=== PATIENT | male | born 1985 | race Caucasian/White ===

== ENCOUNTER 2022-01-24 09:15 | Outpatient (RCR) | payer OTHER, SELFPAY ==
--- NOTE | 2022-01-24 09:15 | BH.COMM ---
Communication Note - Communication with Client Communication Note: Met with patient to complete initial paperwork. No significant changes since pre-admission screening. Completed [place] Suicide Screening. Moderate risk. No active SI. Consulted with Dr. Lance with plan to admit to [facility] level of care with dx of F33.2.
--- NOTE | 2022-01-24 09:15 | BH.COMM_ITS ---
Communication Note - Communication with Client Communication Note: Met with patient to complete initial paperwork. No sig nificant changes since pre-admission screening. Completed [place] Suicide Screening. Moderate risk. No active SI. Consulted with Dr. Lance with plan to admit to [facility] level of care with dx of F33.2.
--- NOTE | 2022-01-24 10:10 | BH.SGPN.GN ---
Behaviors/Verbalizations/Mental Status: [] Client alert and oriented, neatly dressed and groomed. Eye contact good. Motor activity appropriate. Speech within normal limits. Affect congruent, mood euthymic. Thoughts linear, logical, no signs of hallucinations or delusions. Client Response/Progress/Benefit: [] Client connected with topic of anxiety and participated throughout, providing input and taking notes. Attentive during psychoeducation on different anxiety disorders and participated throughout interactive discussion defining anxiety and identifying cognitive and physiological symptoms of anxiety. Common cognitive symptoms identified by group included: ?what if thoughts?, all or nothing thinking, and predicting the future type thoughts. Physiological symptoms reported by patient included: hands sweating, chest being squeezed, and blurred vision. Benefited from increased awareness and insight on anxiety and its impact. Will continue IOP tx to increase healthy coping, decreased anxiety, and prevent decompensation.
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
[2022-01-26 10:54] VITALS: BP 136/88; PULSE 53
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
--- NOTE | 2022-01-26 11:13 | BH.MTP_ITS ---
Master Treatment Plan - Patient Information Program Physician:: Dr. Ester Shields Primary Therapist:: Jaqueline HI - Psychiatric Diagnoses Psychiatric Diagnoses:: Major depressive disorder, recurrent, severe without psychosis F33.2; Generalized anxiety disorder; Rule out PTSD Diagnosis Code(s):: F33.2 - Estimated LOS Estimated LOS (in weeks):: 6 Problem/Goal #1 - Problem/Goal #1 Stated Goal:: Pt will decrease depressive symptoms, worthlessness, low motivation, negative self-talk, and isolation. Description of Barriers: Pt has a significant trauma history, but pt denies that this impacts his mental health currently. Pt minimizes his symptoms and stressors by using humor and deflections. Pt is working fulltime while coming to [facility]. Functional Impact: Pt is a 36-year-old male with a history of MDD and ARVIND. Pt was referred to [facility] tx following a recent hospitalization and worsening symptoms over the past three months. 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 At intake, pt endorsed hopelessness, low motivation, poor sleep, avoidance, and lack of appetite. Pt reported severe anxiety with 2-3 panic attacks per day. Pt also had a self-interrupted suicide attempt in October. Pt's symptoms are impacting his familial, social, and occupational functioning. Goal Relevant Strengths/Supports: Pt has support from his and is connected with outpatient services. - Objectives Objective #1 Stated Objective: Pt will learn and utilize 2-3 healthy coping strategies to better manage depressive symptoms and reduce isolation as shown by a decrease of DMS-5 symptoms for depression. Interventions: Through group and individual sessions, therapist will help pt identify triggers and warning signs of depression and guilt including emotional, physical, and behavioral changes. Therapist will teach pt various coping skills to manage symptoms and give pt tangible resources to use to regulate emotions. Therapist will use cognitive restructuring techniques and help pt gain awareness of negative thoughts that reinforce guilt and depression. Therapist will provide psychoeducation on maintenance cycles and help pt learn ways to break unhealthy maintenance cycles. Therapist will help pt incorporate behavioral activation and assist pt in setting SMART goals. Discharge Criteria: Pt will have met this goal when can report learning and using at least 2 coping skills to manage depressive symptoms and reduce isolation. Additionally, pt will have met this goal when pt's DSM-5 scores for depression decrease. Target Date: 03/07/22 Review Date: 02/14/22 Status: open Objective #2 Stated Objective: Pt will identify at least 2-3 negative thinking patterns that reinforce worthlessness and depression and replace thoughts with positive, realistic messages. Interventions: Therapist will help pt identify distorted, negative thought patterns and replace with more realistic, affirmative messages. Through group and individual therapy pt will learn about the most common distortions. Therapist will use CBT to help pt increase insight to the connection between thoughts, emotions, and behaviors. Therapist will encourage pt to practice thought challenging and self-compassion. Discharge Criteria: Pt will have achieved this goal when can verbalize at least 2 negative thoughts and effectively replace those thoughts with affirmative messages. Target Date: 03/07/22 Review Date: 02/14/22 Status: open Problem/Goal #2 - Problem/Goal #2 Stated Goal:: Pt will reduce anxiety, avoidance, and rumination while increasing ability to function on daily basis Description of Barriers: Pt has a significant trauma history, but pt denies that this impacts his mental health currently. Pt minimizes his symptoms and stressors by using humor and deflections. Pt is working fulltime while coming to [facility]. Functional Impact: Pt is a 36-year-old male with a history of MDD and ARVIND. Pt was referred to [facility] tx following a recent hospitalization and worsening symptoms over the past three months. 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 At intake, pt endorsed hopelessness, low motivation, poor sleep, avoidance, and lack of appetite. Pt reported severe anxiety with 2-3 panic attacks per day. Pt also had a self-interrupted suicide attempt in October. Pt's symptoms are impacting his familial, social, and occupational functioning. Goal Relevant Strengths/Supports: Pt has support from his and is connected with outpatient services. - Objectives Objective #1 Stated Objective: Pt will identify 2-3 anxiety/panic triggers and 2 coping skills to use when feeling anxious to manage anxiety as shown by decreasing DSM- 5 scores for anxiety. Interventions: Pt will provide education on anxiety, avoidance behaviors, and maintenance cycles. Therapist will help pt explore personal symptoms and warning signs of anxiety. Therapist will teach pt coping skills to improve emotional regulation, mindfulness, and distress tolerance to help pt cope with anxiety in the moment and reduce avoidance. Discharge Criteria: Pt will have accomplished this goal when can identify at least 2 triggers and report using 2 coping skills to manage anxiety. Herb tionally, pt will have accomplished this goal when DSM-5 scores show a reduction in symptoms. Target Date: 03/07/22 Review Date: 02/14/22 Status: open Objective #2 Stated Objective: pt will identify 2-3 cognitive distortions that lead to rumination and learn 2-3 ways to manage these thoughts to better manage anxiety Interventions: Therapist will provide education on the most common cognitive distortions and teach pt the connection between thoughts, emotions, and fe elings. Therapist will assist pt in identifying, challenging, and replacing dysfunctional thoughts with positive, more realistic thoughts. Therapist will use CBT and DBT techniques to help pt gain awareness of thinking errors and learn how to more effectively handle negative thoughts. Therapist will also use self-compassion to help pt set more realistic expectations for himself Discharge Criteria: Pt will have accomplished this goal when can identify at least 2 cognitive distortions and at least 2 coping skills to manage negative thoughts. Target Date: 03/07/22 Review Date: 02/14/22 Status: open
--- NOTE | 2022-01-26 11:13 | BH.MDN_ITS ---
Multi-Disciplinary Note - Note 45-min Individual Time Started:: 10:18 Date: 01/26/22 Purpose of session/treatment goals addressed:: To gather information on pt's current stressors, symptoms, triggers, and tx goals. Another goal was to build rapport and provide emotional support. Eye Contact:: Poor - looking at phone and avoiding eye contact Motor Activity:: Appropriate Appearance:: Neat Speech:: Rambling Mood:: Anxious Affect:: Constricted Thoughts:: Circular, Other - distracted- on his phone Staff Interventions:: psychoeducation on: - intrusive thoughts, rapport building, treatment planning Client Response:: Pt responded somewhat well to session, open to meeting with therapist, but presented as disengaged. Pt scrolled on his phone for most of the session, but would say I'm not ignoring you, I'm listening. However, pt did not always answer questions and changed the subject several times. Pt unable to identify what triggered his worsening symptoms, but shared he started getting severe anxiety after returning home from vacation. Pt wants to work on reducing his anxiety and learn how to manage his anxious, intrusive thoughts. Pt did not give much detail of his past, but did shared his brother in 2004. 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 Pt does not believe he has PTSD, but from pt describes, it will need to be ruled out. Pt shared he often feels like things are not real and pointed out the window in session saying I don't like to look at the leaves because they don't feel real. Pt has to leave early today for work, but will be back Monday. Risks/Concerns:: Pt denied any suicidal ideations, plan, or intent to this therapist. Pt denied any thoughts of to this therapist. Denied HI. Progress Toward Goals/Plan:: First week of IOP tx and pt does not present as engaged. During session pt was scrolling through pictures and was not giving this therapist much information. Pt stated he is unsure about taking medications and he has not found therapy to be very helpful in the past. Pt admits that his anxiety is severe and hindering his daily functioning. Pt used humor many times throughout session to minimize his stressors and symptoms. Pt will continue IOP tx to prevent decompensation, gain healthy coping skills, and reduce avoidance. Time Stopped:: 10:56
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
--- NOTE | 2022-01-26 13:15 | BH.DR.ITP ---
Initial Treatment Plan Patient Information Visit Information: ADMISSION DATE: EXPECTED LOS: 4-6 weeks Problems/Symptoms Problem #1:: Depression Symptom:: Sadness, hopelessness, worthlessness, passive thoughts of , anhedonia, lack of motivation biological disruption of appetite in recent months Problem #2:: Anxiety Symptom:: Worry, rumination, depersonalization, derealization
--- NOTE | 2022-01-28 09:05 | BH.SGPN.GN ---
Behaviors/Verbalizations/Mental Status: []Eye contact good, casually dressed, motor activity appropriate, speech normal rate and tone, mood anxious and depressed, congruent affect, thoughts linear and intact, no evidence of delusions or hallucinations. At times making inappropriate jokes/comments. Reviewed pt's symptom tracker, suicidal ideation within pt baseline, denies any current plan, or intent as of this date 01/28/22. Client Response/Progress/Benefit: []Pt responded well to session, attentive and providing supportive feedback at times though also struggling with making inappropriate comments/jokes at other times throughout. Pt reports feeling ?excited and nervous this morning. Identified mental health ?wins? as completing another week at work without his mental health impacting his ability to do so. Discussed that this is the first time in three months he has been able to successfully do so. Pt shared additional win is continuing to make his mental health a priority and working on being more vulnerable and open to discussing his mental health. Current stressor is continuing to maintain the progress he has made and prioritize his mental health. Receptive of and appearing to benefit from supportive feedback and suggestions from the group. Pt to continue IOP tx to improve healthy coping skills, reduce use of defense mechanisms impeding willingness to open up, and further improve mood stability. Narrative Note: []
--- NOTE | 2022-01-28 14:29 | BH.MDN_ITS ---
Multi-Disciplinary Note - Note 30-min Individual Time Started:: 10:30 Date: 01/28/22 Purpose of session/treatment goals addressed:: Met with pt to review progress and current symptoms Eye Contact:: Good Motor Activity:: Appropriate Appearance:: Casual Speech:: Appropriate Mood:: Anxious Affect:: Congruent Thoughts:: Linear, Logical, No evidence of hallucinations/delusions noted Staff Interventions:: psychoeducation on: - appropriate group behaviors., rapport building Client Response:: Pt reports that he is doing much better today than previous days. Met with pt to clarify some recent changes since his pre-admission scre ening. Pt had not been to work since 10/2021 however left IOP early on Monday b/c he had to go to work. It seems that his FMLA ran out and he was more or less forced to return to work. Therapist believed that this would be a significant stressors however pt reports that so far I've been doing well. He has worked 4 days this week. He notes improved mood this week. Could be a mix of engaging in IOP and returning to work. Also used the session to review group rules and appropriate behaviors. Risks/Concerns:: no risks or concerns noted. Progress Toward Goals/Plan:: Progress noted per pt report. Returned to work. Improved relationship at home since returning as this was a major conflict with his . He has struggled at times in group with appropriate behaviors and boundaries however was receptive to education on group rules today. Will continue in IOP to maintain safety, increase healthy coping, and stabilize mood. Time Stopped:: 10:50
--- NOTE | 2022-01-31 10:20 | BH.SGPN.GN ---
Behaviors/Verbalizations/Mental Status: []Pt alert and oriented, casually dressed and groomed. Eye contact good. Motor activity appropriate. Speech within normal limits. Affect congruent, mood anxious. Thoughts linear, logical, no signs of hallucinations or delusions. Client Response/Progress/Benefit: []Pt responded well to session, contributing to discussion and engaged during the activity. Group identified the benefits of change which included: less stress, healthier wellbeing, and a better future. Worked with the group to identify barriers to change and pt identified personal barriers as fear of taking medications and fear of the unknown. Pt participated along with group in activity where they identified and discussed the emotions related to change. Pt participated in discussion on the change process and personal experiences with implementing change in past. Benefited from increased awareness and understanding of emotions, benefits, and barriers related to change. Will continue IOP tx to improve emotional regulation skills, reduce negative thinking, and gain healthy coping skills. Narrative Note: []
--- NOTE | 2022-02-01 09:00 | BH.SGPN.GN ---
Behaviors/Verbalizations/Mental Status: [] Pt eye contact good, casually dressed, motor activity appropriate, speech normal rate and tone, mood anxious, congruent affect, thoughts linear and intact, no evidence of delusions or hallucinations. Client Response/Progress/Benefit: [] Client respond well to session as evidenced by listening attentively to others and sharing thoughts and feelings. Client stated mental positive was having no anxiety and being able to enjoy himself for the entire Monday. Client reported on Monday he spent time with his son hanging up all their decorations for Halloween which he stated was in trouble. Client reported stressor as experiencing a panic attack Monday evening after putting up the following decorations. Client corrected with his in regards to her stating being active could have brought on the panic attack because it would have increased his heart rate since he has not been very active in the last couple months. Client stated this morning he had another panic attack because he was experiencing fearful thoughts that he would have another panic attack. Seemed to benefit from support from peers. Client to continue IOP to increase healthy coping, challenge distorted thoughts and prevent decompensation. Narrative Note: []
--- NOTE | 2022-02-02 09:05 | BH.SGPN.GN ---
Behaviors/Verbalizations/Mental Status: [] Eye contact is good. Motor activity is appropriate. Appearance is casual. Speech is Appropriate. Mood is anxious. Affect is congruent. Thoughts are linear and logical. No evidence of psychosis. Reviewed daily check in sheet and no reports of suicidal ideations or intent. Client Response/Progress/Benefit: [] Pt was an active participant in group discussions. Attentive. Daily symptom tracker notes / for anxiety. Provided appropriate feedback. Emotion for today is ?eager?. Mental health win was ?pretty good week? as he continues to go to work daily and was open/honest with his employer regarding his mental health concerns. His depression and anxiety continue to impact his functioning as he reports that he is ?pushing through? distress. Has numerous thoughts and stigma associated with mental health ?why am I like this? ? will it ever get better?? ?why can?t I be like everyone else?. These thoughts lead to hopelessness. Group provided feedback and challenged his thoughts pointing to his progress since a month ago when he was hospitalized. Benefited from group support, encouragement, and feedback. Will continue in IOP to maintain safety, prevent decompensation/re-admission, decreased panic, and improve functioning. Narrative Note: []
--- NOTE | 2022-02-02 15:58 | BH.MDN_ITS ---
Multi-Disciplinary Note - Note 30-min Individual Time Started:: 11:20 Date: 02/02/22 Purpose of session/treatment goals addressed:: Reviewed current progress and symptoms. Addressed treatment goal #2 Eye Contact:: Good Motor Activity:: Appropriate Appearance:: Casual Speech:: Appropriate Mood:: Anxious Affect:: Congruent Thoughts:: Linear, Logical, No evidence of hallucinations/delusions noted Staff Interventions:: psychoeducation on: - intrusive thoughts, rapport building, goal setting Client Response:: Pt was open to session. This therapist with take over as pt's primary therapist in [facility] due to scheduling conflicts. Pt reports I just want to be normal in regarding to his depression, anxiety, dissociation, and depersonalization. Feels detached from himself and hype focuses on body my hands don't feel real. States that the room shrinks when anxious and stressed. Hopeless stating I feels like this won't get better. Pt reports significant intrusive thoughts that make me feels crazy. I'm embarrassed to say them out loud. He returned to work however often feels as if he is just pushing through the distress. Has existential thughts about himself and life which are exacerbating anxiety and depression such as is this all that my life is going to be. These thoughts coupled with anxiety, panic, health anxiety, and hopelessness resulted in decreased functioning since October. He only just returned to work, began driving by himself, and felt comfortable leaving the house. Risks/Concerns:: no risks or concerns noted. Progress Toward Goals/Plan:: For the first few days in IOP pt did not appear to be engaged, used humor as a defense mechanism, and was hesitant to be vulnerable and discuss struggles, however was noted to be more appropriate and engaged this week. Used the session to normalize his symptoms and provided psychoeducation on intrusive thoughts, depersonalization, and dissociation and how this impacts anxiety. Plan in to continue in [facility] to prevent decompensation, increase healthy coping, and improve functioning. Pt was recommended to start a new medication by program psychiatrist however has not started. He is hesitant due to I'm been getting better and I don't want to mess things up. Pt had significant side effects and decompensation with previous medication changes. Time Stopped:: 11:45
--- NOTE | 2022-02-04 09:05 | BH.SGPN.GN ---
Behaviors/Verbalizations/Mental Status: []Eye contact good, casually dressed, motor activity appropriate, speech normal rate and tone, mood euthymic, congruent affect, thoughts linear and intact, no evidence of delusions or hallucinations. Reviewed pt's symptom tracker pt denies any SI plan, or intent as of this date 02/04/22. Client Response/Progress/Benefit: [] Pt responded well to session, attentive and engaged. Pt reports feeling hopeful this morning as pt was productive yesterday. Pt shared he cleaned and fixed his car after work. Pt is also hopeful about IOP tx but pt struggles to be vulnerable per his report. Pt's lack of sleep and the stress of having a 7 week old baby continue to impact pt's mental health. Pt also struggles with intrusive thoughts and ruminations. Pt appeared to benefit from group support and encouragement. Pt will continue IOP tx to prevent decompensation, improve daily functioning, and reduce intrusive thoughts. Narrative Note: []
--- NOTE | 2022-02-07 09:05 | BH.SGPN.GN ---
Behaviors/Verbalizations/Mental Status: [] Eye contact is poor. Motor activity is appropriate. Appearance is casual. Speech is Appropriate. Mood is anxious/irritable. Affect is congruent. Thoughts are linear and logical. No evidence of psychosis. Reviewed daily check in sheet and no reports of suicidal ideations or intent Client Response/Progress/Benefit: [] Pt participated when prompted. Distracted. Restless. Daily symptom tracker notes 2/5 for depression and anxiety. Was very short with his check-in which is not baseline. Was unable to identify any wins except to say ? I had a good weekend?. Emotion for today is irritable. Limited benefit from group. Will continue in IOP to prevent decompensation/re-admission, decreased intrusive thoughts, and improve functioning Narrative Note: []
--- NOTE | 2022-02-07 11:45 | BH.MDN ---
Multi-Disciplinary Note - Note 60-min Individual Time Started:: 10:35 Date: 02/07/22 Purpose of session/treatment goals addressed:: Pt had a panic attack in-between 1st and 2nd group which last approximately 30 minutes. Met with pt to process the panic attack. Eye Contact:: Fair Motor Activity:: Restless Appearance:: Disheveled Speech:: Appropriate Mood:: Anxious Affect:: Congruent Thoughts:: Linear, Logical, No evidence of hallucinations/delusions noted Staff Interventions:: mindfulness skills, taught coping skills Client Response:: Pt shared that after 1st group he went to his care to take a break. Disclosed a panic attack which had been building up since 1st group. Reports that his anxiety and irritability were building up in 1st group however I wanted to toughen it out. After 1st he went to his group and distracted himself with his phone. There was also less stimulation in the car. We processed his anxiety and thoughts which were exacerbating his symptoms. Pt reports several intrusive thoughts which appear to stem around his anxiety being more related to a brain tumor. Pt's GMA had a brain tumor which impacted her cognitively and he believes (at times) this is happening when he is anxious. Recent CT scan which showed everything was normal. When anxious reports tunnel vision and feeling like the room is shaking. Thoughts are Is this anxiety or something else I'm not real Is this anxiety or something physically wrong Is this a brain thing? What if I black out and become homicidal. Several intrusive thoughts in different categories. Educated patient on payne mind strategies. Suggested leaving group and utilizing calming skills and returning however he viewed that as more of a failure stating I wanted to tough it out Open to discussion on the anxiety continuum (0-10) and identifying escalation and taking action prior to level 10 of panic attack. Insight that he was letting it escalate w/o interventions in group which resulted in panic. Risks/Concerns:: no risks or concerns noted. Progress Toward Goals/Plan:: Pt had a panic attack this AM in group however was able to utilize skills and return to IOP. He has not read intrusive thoughts handouts that were provided last week, however open to education today. Encouraged him to read those handouts. He struggles with trying to ignore his anxiety and hoping if I don't think about it ... I'm ok however then contradicts himself saying I'm anxious throughout the whole day. Stigma associated with his struggles I used to think people like me were crazy. Plan is to continue in IOP to prevent decompensation/admission, stabilize anxiety, and improve daily functioning. Time Stopped:: 11:30
== END 2022-02-07 23:59 ==
LOC: BHIOP 09:15
PROVIDERS: Visit Provider Psychiatry & Neurology Psychiatry
DX: F33.2 Major depressive disorder, recurrent severe without psychotic features (principal); F41.1 Generalized anxiety disorder
CPT/HCPCS: S9480; 90832; 90834; 90837; 90853

== ENCOUNTER 2022-02-08 08:10 | Outpatient (RCR) | payer OTHER, SELFPAY ==
[2022-02-08 00:43] VITALS: BP 136/88; PULSE 53
--- NOTE | 2022-02-09 10:08 | BH.SGPN.GN ---
Behaviors/Verbalizations/Mental Status: []Client alert and oriented, casually dressed and groomed. Eye contact good. Motor activity appropriate. Speech within normal limits. Affect congruent, mood anxious. Thoughts linear, logical, no signs of hallucinations or delusions. Client Response/Progress/Benefit: []Client responded well to session AEB taking notes, providing input, and listening attentively to others. Client provided examples of benefits of having social support. Client also contributed throughout group discussion regarding the different kinds of supports in our safety net and the things that weaken or prevent us from using our supports. Client identified that fear supports will not consistently be available can become something that may weaken one?s support net. Client participated in experiential activity illustrating the importance of having multiple social supports. Client provided supportive feedback and problem solving throughout group activity. Client attentive and contributing during group processing of the activity. Client appeared to benefit from increased knowledge of the benefits of social support and greater self-awareness. Will continue IOP treatment to enhance coping skill repertoire, further improve mood and anxiety management, and improve overall functioning. Narrative Note: []
--- NOTE | 2022-02-09 11:05 | BH.SGPN.GN ---
Behaviors/Verbalizations/Mental Status: []Pt alert and oriented, neatly dressed and groomed. Eye contact good. Motor activity appropriate. Speech within normal limits-but engaging in side conversations. Affect congruent, mood anxious. Thoughts linear, logical, no signs of hallucinations or delusions. Client Response/Progress/Benefit: []Pt was an active participant throughout AEB contributing to discussion, providing personal examples, and taking notes.? Pt provided input during discussion on the types of support our supports can provide. Pt able to identify current support system and barriers that get in the way of using supports by drawing out their own support net. Personal barriers included not setting goals and new medications. Pt reported after identifying what type of supports they receive; they gained awareness that they could benefit from more informational supports. Pt identified steps to achieve this by finding reliable resources to learn about his mental health and brain. Pt seemed to benefit from identifying the type of support pt needs to work on improving. Pt recommended to continue IOP tx to improve emotional regulation skills, reduce negative thinking, and improve daily functioning. Narrative Note: []
--- NOTE | 2022-02-09 12:28 | PCM.BH.PN_ITS ---
Progress Note Progress Note: History of Present Illness/Interim History: [] The patient is a 36-year-old male with a history of depression anxiety and health anxiety who is seen in follow- up at the [facility] behavioral health IOP program. Last saw the patient 2 weeks ago and at that time the plan decided on was to wean him off the Prozac slowly and to slip box changer to Effexor XR. However the patient states that he did not do this and does not want to do any med changes as he is very anxious about any medication changes. He wishes to utilize the therapeutic skills he is learning in the IOP to help him improve his anxiety. He feels he is learning valuable skills to help deal with his mental health issues in the groups and in an other education in the program. The patient states that he is feeling less panicky lately and he is having only mild panic attacks twice in the past 2 weeks. He is doing less dissociating. He denies worthlessness now hopelessness or passive thoughts of . He denies any strange thoughts. He denies suicidal ideation, plan for suicide, homicidal ideation, hallucinations or delusions. According to the staff the patient has anxiety over the possibility that he might get a brain tumor like his grandmother did. He has had a CT scan done for this which was normal but in counseling sessions is preoccupied with somatic sensations and health anxiety. Current Psychiatric Medications: [] Prozac 40 mg p.o. daily; (on this for 7 years); propranolol 20 mg p.o. daily. Patient never weaned the Prozac or started the Effexor XR. Mental Status Examination: [] The patient is a 36-year-old male who appears normal for stated age and is ambulatory with a normal gait. He is casually dressed and groomed with good hygiene and alert and oriented to person place and time. He is wearing glasses. He has no psychomotor agitation or retardation. He is cooperative during the interview and uses humor frequently. Eye contact is good and speech is normal rate and rhythm and fluent with no pressure. Mood is anxious and depressed. Affect is full and normal. Thought process is goal-directed and organized. Thought content: There is no evidence of passive thoughts of , suicidal ideation, plan for suicide, homicidal ideation, hallucinations or delusions. There is much less occurrence of depersonalization and none during the interview. Reality testing is intact. Impulsivity is moderate. Insight is limited. Judgment is intact. Diagnoses: [] 1. Major depressive disorder, recurrent, severe without psychosis 2. Generalized anxiety disorder 3. Illness anxiety disorder 4. Primary support, health and work issues Plan: [] The patient will continue the IOP program at [facility] as the structure, support, education and group therapy will hopefully prevent worsening of the patient's symptoms which might require rehospitalization. He felt safe during the interview and if it anytime he does not feel safe he will let us know or go to the emergency room. The risks, options, possible complications and side effects of the medications were discussed with the patient and he understands and accepts these. The patient refuses any medication changes at this time as he is had bad experiences with them in the past. He agrees to reconsider this if his symptoms do not continue to improve or if they worsen. He has a consult scheduled to look into TMS to help with his symptoms and his inability to tolerate medications well. He will continue to follow-up with his outpatient providers and I will see the patient in follow-up while he is in the IOP program.
--- NOTE | 2022-02-11 09:10 | BH.SGPN.GN ---
Behaviors/Verbalizations/Mental Status: [] Eye contact is poor. Motor activity is appropriate. Appearance is casual. Speech is Appropriate. Mood is anxious. Affect is congruent. Thoughts are linear and logical. No evidence of psychosis. Reviewed daily check in sheet and no reports of suicidal ideations or intent. Client Response/Progress/Benefit: [] Pt was an active participant in group discussions. Attentive. Emotion for today was anxious. Daily symptom tracker notes 3/5 for anxiety and 2/5 for depression/irritability. Mental health win was beging assertive at work. He elaborated on this further and discussed how this was benefical for this mental health. Another win was that he was completing tasks at home. He admits that he is pre-occupied and ruminating that he had a brief panic attack this AM. This is causing doubt that I'm getting better. He briefly described the events to group. Group was supportive, empathetic, and shared feedback which was beneficial. Pt reported benefiting from the support. Will continue in IOP to prevent decompensation/re-admission, stabilize mood, and increase healthy coping skills. Narrative Note: []
--- NOTE | 2022-02-11 10:08 | BH.SGPN.GN ---
Behaviors/Verbalizations/Mental Status: []Pt alert and oriented, casually dressed and appropriately groomed. Eye contact good. Motor activity appropriate. Speech within normal limits. Affect congruent, mood euthymic and anxious. Thoughts linear, logical, no signs of hallucinations or delusions. Client Response/Progress/Benefit: []Pt was an engaged participant AEB providing input, listening to others, and taking notes. Did well to remain on topic. Participated in interactive group discussion on internal and external barriers to mental health progress. Pt described current reality as feeling like he?s trapped in a bubble and his family doesn?t know what?s wrong with him. Reported desired reality is no longer being trapped and feeling more connected with his family. Client shared personal barriers to desired realty include: distorted reality, being trapped in his own head, and feeling alone. Benefited from increased awareness of current barriers to progress as well as current/desired realities. Pt will continue IOP tx to reduce anxiety and improve mood stability, increase consistent use of healthy coping, and prevent decompensation. Narrative Note: []
--- NOTE | 2022-02-14 10:12 | BH.SGPN.GN ---
Behaviors/Verbalizations/Mental Status: []Client alert and oriented, casually dressed and groomed. Eye contact good. Motor activity appropriate, at times appearing restless AEB getting up to move about the room. Speech within normal limits. Affect congruent, mood anxious and agitated. Thoughts linear, logical, no signs of hallucinations or delusions. Client Response/Progress/Benefit: []Client was an active participant in group discussions and activity. Attentive during psychoeducation. Client, along with peers, was able to identify several negatives on the picture given to the group. Client and peers also identified positives in the picture and made the connection that finding positives is much more difficult. Client shared that his perspective is often skewed when he?s feeling anxious, noting ?It?s all I can focus on?. Interactive discussion on the definition of perspective, how perspective is formed, and why perspective is important in treatment. Client discussed that stress levels and environment can influence one?s perspective. Client along with group members came up with benefits of having a hopeful perspective for their mental health, which included feeling more encouraged, increased willingness to open up to peers, and reduced stress. Will continue in IOP to promote gains, increase overall functioning, and increase use of healthy coping skills. Narrative Note: []
--- NOTE | 2022-02-16 09:05 | BH.SGPN.GN ---
Behaviors/Verbalizations/Mental Status: [] Eye contact is good. Motor activity is appropriate. Appearance is disheveled. Speech is Appropriate. Mood is anxious. Affect is congruent. Thoughts are linear and logical. No evidence of psychosis. Reviewed daily check in sheet and no reports of suicidal ideations or intent. Client Response/Progress/Benefit: [] Pt participated at times during the group discussion. Attentive. Daily symptom tracker notes 05/15 for anxiety and depression.Pt was very brief with his check-in today however did provide appropriate feedback to peers. Mental health wins included completing tasks at work. Pt states I'm trying to remain optimistic that I will continue to be like this. He reports improvement in mood since this past weekend and is nervous that things will decompensate and he will be back to having significant panic attacks and intrusive thoughts. Group empathized with his thinking and helped reframe and challenge this thoughts. Benefited from group support, encouragement, and feedback. Will continue in IOP to prevent decompensation/re-admission, decrease intrusive thoughts, and to improve functioning. Narrative Note: []
--- NOTE | 2022-02-16 10:12 | BH.SGPN.GN ---
Behaviors/Verbalizations/Mental Status: []Eye contact is good. Motor activity is appropriate. Appearance is casual and grooming tended to. Speech is Appropriate. Mood is anxious. Affect is congruent. Thoughts are linear and logical. No evidence of psychosis Client Response/Progress/Benefit: []Client receptive of session, actively engaged throughout AEB taking notes and provided input and examples to discussion. Appeared to connect with group topic of cognitive distortions and the impact of thought patterns on mental health, coping behaviors, and relationships. Reflected that he personally tends to struggle with distortions of catastrophizing, all or nothing thinking, and disqualifying the positives. Shared examples of past all or nothing thoughts and how these have impacted his relationships. Client appeared to benefit from gaining insight on distorted thinking patterns and how this impacts overall mental health. Progress noted in client report of improved insight into own distorted thinking patterns and ability to recognize it?s impacts on his mental health. Will continue IOP tx to maintain mood stability, reduce anxiety, promote healthy coping, and prevent decompensation. Narrative Note: []
--- NOTE | 2022-02-16 11:15 | BH.SGPN.GN ---
Behaviors/Verbalizations/Mental Status: [] Eye contact is good. Motor activity is appropriate. Appearance is disheveled. Speech is Appropriate. Mood is euthymic. Affect is full. Thoughts are linear and logical. No evidence of psychosis. Client Response/Progress/Benefit: [] Pt was an active participant in the group activity which involved working with peers to answer questions related to psychoeducation on cognitive distortions. Questions were posed in the fashion of Jeopardy and the categories included; Identifying the Cognitive Distortion, Ways to reframe cognitive distortions, Examples of cognitive distortions, and other areas related to cognitive distortions. The was a fun and engaging way to help reinforce psychoeducation and to help client retain the information through examples and practicing. Pt was engaged in the game and with peers on collaborating to determine the answers. Benefited from rehearsing ways to challenge/reframe cognitive distortions and by gaining increased insight into examples/definitions of 10 most common cognitive distortions. Will continue in IOP to prevent decompensation/re-admission, decreased intrusive thoughts, and maintain safety. Narrative Note: []
--- NOTE | 2022-02-16 13:51 | BH.MDN ---
Multi-Disciplinary Note - Note 45-min Individual Time Started:: 10:15 Date: 02/16/22 Eye Contact:: Good Motor Activity:: Appropriate Appearance:: Disheveled Speech:: Appropriate Mood:: Anxious Affect:: Congruent Thoughts:: Linear, Logical, No evidence of hallucinations/delusions noted Staff Interventions:: thought challenging, psychoeducation on: - intrusive thoughts, (worried mind, false comfort, and payne mind), discharge planning, reviewed DSM-5 Client Response:: Pt reports I hope I can maintain my progress as he reports that his symptoms are moderate currently and much improved from this weekend. We reviewed his 3 week outcome scores. DSM outcome scores show an overall 27% reduction in symptoms. Scores indicate a 25% decrease in the depression domain, 14% decrease in the anxiety domain, and 25% decreased in repetitive thoughts/behaviors. No change on the anger or SI domains. Scores also show a decrease in detachment or dissociative symptoms. We reviewed skills learned in group to manage anxiety/panic. Able to identify 2 calming skills which have been most helpful which include breathing techniques and mindfulness. Also introduced additional breathing skills and mindfulness skill and encouraged him to practice. Open to conversation on best times to incorporate skills such as when anxiety level is at 4-6 rather than at a level of 9-10. Open to conversation on utilizing self-care and other forms of prevention. Risks/Concerns:: no risks or concerns noted. Progress Toward Goals/Plan:: Pt returned to work upon entering IOP and has been working full-time. He continue to have panic attacks which occur 2-3x weekly. Panic attacks and intrusive thoughts often trigger depression, SI, and anger therefore much attention has been placed on anxiety mgmt skills. In working with pt staff have identified intrusive thoughts centered around his health which are exacerbating his anxiety. Concerns that his anxiety is medically based or the result of a tumor. Pt had finally read some of the handout that was given to him 2 weeks ago. Connected with intrusive thoughts and concepts of worried mind, false comfort, and payne mind. Engaged during role-playing on typical cycle of intrusive thoughts and skills to implement to decrease this cycle and reassurance seeking. Will continue in IOP to maintain gains, prevent decompensation, and decrease intrusive thoughts. Time Stopped:: 11:00
--- NOTE | 2022-02-16 14:00 | BH.MTP_ITS ---
Treatment Plan Review Date of Admission:: 02/24/22 Date of Treatment Plan Review:: 02/16/22 Admitting Diagnoses:: 1. Major depressive disorder, recurrent, severe without psychosis. 2. Generalized anxiety disorder Current Diagnoses:: 1. Major depressive disorder, recurrent, severe without psychosis. 2. Generalized anxiety disorder. 3. Illness anxiety disorder Patient's Response to Treatment:: Consistent attendance and engaged in group. Since returning to work pt must leave IOP 10-15 minutes early which translate to not receiving full benefit of 3rd group. Pt will often utilize inappropriate humor when anxious or uncomfortable which sporadically occurs, however he is redirectable. Also has to review group rules with patient due to some initial boundaries concerns however responded well. Despite being engaged and attentive in group he struggles with practicing skills outside of group and often reverts back to prior skills uch as pushing through it, avoidance, and distraction. Status of Current Problems and Symptoms: Pt returned to work upon entering [facility] and has been working full-time. He continue to have panic attacks which occur 2- 3x weekly. In working with pt staff have identified intrusive thoughts centered around his health which are exacerbating his anxiety. Concerns that his anxiety is medically based or the result of a tumor. Fear of going to the PCP b/c they might find something. Has not been to the PCP since 2016. DSM outcome scores show an overall 27% reduction in symptoms. Scores indicate a 25% decrease in the depression domain, 14% decrease in the anxiety domain, and 25% decreased in repetitive thoughts/behaviors. No change on the anger or SI domains. Problem #1 Problem Name:: Depression Status of Goals:: Scores indicate a 25% decrease in the depression domain. Pt's depression is significantly linked to his anxiety. Increased fear, health anxiety, panic attacks, and intrusive thoughts often lead to depression and SI. Obj1- able to identify coping skills for depression, however struggles with consistent use. Obj2- Needs continued treatment on identifying negative thoughts associated with depression and ways to replace these thoughts. Team Recommendations:: continue in IOP and with current treatment plan Problem #2 Problem Name:: Anxiety Status of Goals:: 14% decrease in the anxiety domain, and 25% decreased in repetitive thoughts/behaviors. Obj 1- completed. Able to identify triggers and calming skills. Obj 2- Increase awareness of cognitive distortions however struggles to identify when he uses these independently. Can utilize re-framing and challenging with assistance. Team Recommendations:: Continue in IOP and with current treatment plan.
--- NOTE | 2022-02-18 09:10 | BH.SGPN.GN ---
Behaviors/Verbalizations/Mental Status: [] Eye contact is poor. Motor activity is appropriate. Appearance is casual. Speech is Appropriate. Mood is anxious. Affect is congruent. Thoughts are linear and logical. No evidence of psychosis. Reviewed daily check in sheet and no reports of suicidal ideations or intent. Client Response/Progress/Benefit: [] Pt participated at times during group discussions. Distracted at times. Emotion for today is ?anxious?. Daily symptom tracker notes 3/5 for anxiety and 2/5 for depression and anger. Shared with the group that he woke up Monday night with a panic attack which led to feeling confused and detached from himself. ?Intrusive thoughts that ?something is wrong with me? physically. Negative thoughts become overwhelming and her reports fleeting passive thought of . ?I thought I don?t want to live like this?. He utilized distraction through his phone and after an hour the panic subsided, and he fell back to sleep. The next day 02/17 his anxiety remained which led to not completed certain tasks at work. Today her is ruminating that all his progress is lost and thing will continue to decompensate. Group provided support, encouragement, and attempted to reframe and challenge his negative thoughts. Pointed out cognitive distortions and attempted to change his perception on the events. It could be viewed as a win that he managed through his panic and was back to sleep in under an hour. Pt was visibility anxious during group and attempted to distract via his phone. Will continue in IOP to prevent decompensation, decrease intrusive thoughts, and maintain safety. Narrative Note: []
--- NOTE | 2022-02-18 10:15 | BH.SGPN.GN ---
Behaviors/Verbalizations/Mental Status: [] Client alert and oriented, casually dressed and groomed. Eye contact good. Motor activity appropriate. Speech within normal limits. Affect congruent, mood euthymic. Thoughts linear, logical, no signs of hallucinations or delusions. Client Response/Progress/Benefit: [] Client was an active participant AEB contributing to discussion, taking notes, and engaging in group activity. Connected with the topic of pitfalls and listened to group discussion on barriers that prevent from choosing a healthier path to mental wellness. Group worked together to identify examples of personal pitfalls which included; anger, shutting down, drug use, unhealthy coping, denial, distortions, and self sabotage. Client avoidance as a personal pitfall that have inhibited progress in the past. Client benefited from group as client learned to better identify potential barriers to improving mental health symptoms. Client will continue IOP tx to use healthy coping consistently and improve daily functioning. Narrative Note: []
--- NOTE | 2022-02-18 15:05 | BH.MDN ---
Multi-Disciplinary Note - Note 30-min Individual Time Started:: 11:15 Date: 02/18/22 Purpose of session/treatment goals addressed:: Reviewed current symptoms and progress in IOP. Pt reported panic attack and significant anxiety yesterday. Eye Contact:: Fair Motor Activity:: Restless Appearance:: Disheveled Speech:: Appropriate Mood:: Anxious, Irritable Affect:: Congruent Thoughts:: Linear, Logical, No evidence of hallucinations/delusions noted Staff Interventions:: thought challenging, psychoeducation on: - managing intrusive thoughts., mindfulness skills Client Response:: Pt reports significant anxiety, intrusive health thoughts, panic attack, and passive thoughts of on Monday evening. According to pt he woke up around in the early AM with overwhelming anxiety. This anxiety lasted close to an hour. He is vague and struggles to verbalize the exact thoughts that were going through his head however the mainly revolved around fear of having some wrong with him physically. This therapist has encouraged him to make an appointment with his PCP whom he has not seen in several years, however he continues to decline. Anxiety resulted in feeling like the room was closing in on him, depersonalization, other somatic symptoms. He began to exhibit cognitive distortions (Shoulds/musts, catastrophizing, and absolute thinking) which led to feeling hopeless and this is never going to get better. After an hour the anxiety subsided and he fell back asleep. Primary skills used was distraction and breathing. Reports that yesterday he still went to work however did not perform certain tasks due to anxiety. Feels less anxious today however ruminating that yesterday he failed and that his anxiety will get worse. Therapist worked to reframe progress as not linear and pointed out that he was able to work through anxiety showing resilience. Challenged perspective that any setback is automatically failure. He admits to struggling to agree with these perspectives. Risks/Concerns:: No current risks or concerns. Reports passive thoughts of which occurred in the early AM on 02/17/22. I can't live like this. Denies any passive thoughts throughout the day yesterday or today. Progress Toward Goals/Plan:: Pt and therapist were able to process the anxiety events yesterday to better understand triggers and skills that were/were not effective. Pt relies heavily on distraction (games of his phone) to work through panic. He struggles to utilize thought reframing or other strategies for intrusive thoughts (payne mind). He has not followed up with reading assignments for fear that reading about intrusive thoughts will trigger them. He believes that the best course is to avoid anything that could trigger thoughts (including talking or learning skills about them). It is OK to use distraction however finding internal skills to address automatic thoughts in combination with distraction would be more beneficial long-term. He was again given handout on ways to manage intrusive thoughts. Will continue in IOP to maintain safety, decrease intrusive thoughts, and prevent decompensation. Time Stopped:: 11:45
--- NOTE | 2022-02-21 09:00 | BH.SGPN.GN ---
Behaviors/Verbalizations/Mental Status: []Pt alert and oriented, casually dressed and groomed. Eye contact good. Motor activity appropriate. Speech within normal limits. Affect congruent, mood euthymic. Thoughts linear, logical, no signs of hallucinations or delusions. Reviewed pt?s symptom tracker, no risk for suicidal ideation, plan, or intent as of 02/21/22 Client Response/Progress/Benefit: []Pt responded well to session, attentive and engaged. Pt reports feeling optimistic this morning sharing he wants his mood to continue improving from last week. Pt shared last week he struggled with depression and anxiety and pt was worried I was going to spiral. Pt stated going to work consistently and thought challenging has helped pt get through this recent episode without spiraling. Pt's stressor today is that he continues to worry about the future and what this week will bring. Pt appeared to benefit from reflecting on his use of coping skills. Pt will continue IOP tx to increase emotional regulation skills, combat distortions, and improve mood stability. Narrative Note: []
--- NOTE | 2022-02-21 10:01 | BH.SGPN.GN ---
Behaviors/Verbalizations/Mental Status: []Eye contact is good. Motor activity is appropriate. Appearance is casual. Speech is Appropriate. Mood is euthymic. Affect is full. Thoughts are linear and logical. No evidence of psychosis. Client Response/Progress/Benefit: []Pt was an active participant in group discussions. Attentive during psychoeducation. Participated with peers in experiential activity. Pt participated in an interactive discussion with peers in which they worked together to define what coping skills are, sharing that ?coping skills are what helps you manage what you?re going through?. Group then identified unhealthy coping skills which included; isolating, substance abuse, stress eating, sleeping to escape, and denial. Psychoeducation on coping skill formation and benefits of healthy coping skills on mental health. Pt displayed insight that he often struggles with isolation and minimizing to avoid dealing with his stressors, but ultimately this ends up making them worse. Benefited from increased awareness and education the benefits of having a healthy coping repertoire and consequences of unhealthy coping on mental health and relationships. Will continue in IOP to maintain gains, increase healthy coping, and improve functioning. Narrative Note: []
--- NOTE | 2022-02-21 11:01 | BH.SGPN.GN ---
Behaviors/Verbalizations/Mental Status: []alert and oriented, casually dressed and groomed. Eye contact fair to good. Motor activity appropriate. Speech within normal limits. Affect congruent, mood euthymic. Thoughts linear, logical, no signs of hallucinations or delusions. Client Response/Progress/Benefit: []Pt responded well to session AEB taking notes and providing input and examples throughout. Group discussed the different categories of coping skills which included distraction, emotional release, grounding, self-love, and thought challenging. Pt helped group brainstorm healthy coping skills for each coping category. Pt stated he has tried several of the coping skills discussed throughout group. Pt reported he would like to try guided meditation to see if that can help him manage anxious symptoms.? Appeared to benefit from increasing repertoire of healthy coping skills. Pt will continue IOP tx to continue use of healthy coping skills, decrease anxious symptoms and prevent decompensation.
--- NOTE | 2022-02-23 10:10 | BH.SGPN.GN ---
Behaviors/Verbalizations/Mental Status: [] Eye contact is good. Motor activity is appropriate. Appearance is casual. Speech is Appropriate. Mood is anxious. Affect is congruent. Thoughts are linear and logical. No evidence of psychosis. Client Response/Progress/Benefit: [] Pt was an active participant in group discussions and activities. Attentive during psychoeducation. Participated during interactive group discussions on defining stress, benefits of stress, and how they respond when feeling overwhelmed with stress. Pt identified main stressors in life as; , work, kids, health, and anxiety. Pt stated that his 'stress jar' is overflowing and that when his jar is overflowing it leads to hospitalization, googling (health anxiety), and some self-harm. Benefited from increased understanding of stressors and how they can impact mental health. Will continue in IOP to maintain safety, prevent decompensation/re-admission, and increase healthy coping. Narrative Note: []
--- NOTE | 2022-02-28 10:05 | BH.SGPN.GN ---
Behaviors/Verbalizations/Mental Status: [] Eye contact is good. Motor activity is appropriate. Appearance is casual. Speech is Appropriate. Mood is euthymic. Affect is full. Thoughts are linear and logical. No evidence of psychosis. Client Response/Progress/Benefit: [] Pt was an active participant during the group discussions. Participated during interactive discussion on defining conflict (internal/external) and possible benefits to conflict. Attentive during psychoeducation on conflict styles and engaged during small group activity in which peers identified the benefits and consequences to each conflict style. Benefited from increase awareness of the impact of conflict styles in mental health. Will continue in IOP to prevent decompensation/re-admission, increase healthy coping, decrease intrusive thoughts, and stabilize anxiety. Narrative Note: []
--- NOTE | 2022-02-28 14:11 | BH.MDN ---
Multi-Disciplinary Note - Note 45-min Individual Time Started:: 11:05 Date: 02/28/22 Purpose of session/treatment goals addressed:: Reviewed current progress and symptoms. This session focused again on identify and addressing cognitive emotions, acceptance, and skills to process address intrusive thoughts. Eye Contact:: Good Motor Activity:: Restless Appearance:: Casual Speech:: Appropriate Mood:: Anxious Affect:: Congruent Thoughts:: Linear, Logical, No evidence of hallucinations/delusions noted Staff Interventions:: psychoeducation on: - intrusive thoughts., CBT techniques, discharge planning Client Response:: Pt reports a rough two days over the weekend. Intrusive thoughts regarding the causes to his anxiety being medical. Reports numerous cognitive distortions including labeling, catastrophizing, and predicting the future. Hyper focused on somatic sensations. Continues to rely mainly on external coping skills however did report utilizing some intrusive thoughts coping skills such as payne mind and acceptance. Able to reframe his struggles as well identifying that the frequency and intensity of his panic has decreased. I know that these thoughts and feelings are going to pass. I struggle to use skills in the moment. We spent a considerable amount of time reviewing the role that payne mind and acceptance play in intrusive thoughts. Went over examples of how beliefs and thoughts can impact physiological symptoms. He avoids seeing his PCP for fear that something is wrong however ruminates extensively that something is wrong. Insight on the absurdity of this and he agrees to make appt with PCP to get check-up and annual bloodwork. Risks/Concerns:: no risks or concerns noted. Progress Toward Goals/Plan:: Progress noted. Pt is consistent and engaged in IOP. Reports benefits from psychoeducation and support from IOP. Pt is often to focused on trying to avoid anxiety triggers rather that accepting that anxiety will occur throughout the day and that experiencing anxiety is not a failure. Not having anxiety or having intrusive thoughts is an unrealistic goal therefore is setting himself up for failure. Struggles with utilizing internal skills in the moment however has improved. Improved functioning since starting IOP as he remains consistent at work. He has not followed through with reading assignments and reports that his often stating he is not trying. Pt admits that he avoids reading due to being tired as well as fear that reading about intrusive thoughts will trigger his intrusive thoughts. Will continue to provide education and skills building in session. Encouraged him to make appt with PCP to establish care as he has not seen PCP in several years for fear of them finding something wrong. His father at an early age and his grandmother had a tumor. Will continue in IOP to maintain safety, stabilize anxiety, and improve functioning. Pt has appt with outpatient psychiatrist tomorrow. Time Stopped:: 11:50
--- NOTE | 2022-03-02 09:05 | BH.SGPN.GN ---
Behaviors/Verbalizations/Mental Status: []Pt eye contact good, casually dressed, motor activity appropriate, speech normal rate and tone, mood euthymic, congurent affect, thoughts linear and intact, no evidence of delusions or hallucinations. Reviewed daily check in sheet and no reports of suicidal ideations or intent. Client Response/Progress/Benefit: []Client responded well to session AEB listening attentively to others and sharing thoughts and feelings. 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 Client stated he initially wanted to call off work, but recognized avoidance would make his anxiety worse. Client reported he reminded himself this will pass. Client stated he felt better after making him to the anxious thing and it went better than expected. Client reported additional mental health positive as putting up his [employer] lights. Client stated current stressor as anxious about when the next panic attack will happen. Client seemed to benefit from support from others. Provided positive feedback to others. Progress noted with client reporting facing his anxiety instead of using avoidance. Client to continue IOP to continue use of skills, challenge distorted thoughts, and prevent decompensation. Narrative Note: []
--- NOTE | 2022-03-02 10:15 | BH.SGPN.GN ---
Behaviors/Verbalizations/Mental Status: [] Eye contact is good. Motor activity is appropriate. Appearance is casual. Speech is Appropriate. Mood is euthymic. Affect is full. Thoughts are linear and logical. No evidence of psychosis. Client Response/Progress/Benefit: [] Pt was an active participant in group discussions and experiential activity. Attentive during psychoeducation on resiliency. Participated in interactive discussion with peers on the definition of resiliency and where it comes from. Group identified that resiliency can be the result of; past experiences, learned behaviors, and observations of others. Group also worked together to identify the benefits of being resiliency and how it is related to mental health. Able to relate experiential activity of group juggle to topics of resiliency. Worked well with peers in small group in which they identified factors that contribute to resiliency.Benefited from increased awareness of resilience and the factors that contribute to building resiliency. Will continue in IOP to prevent decompensation, stabilize anxiety, and decrease intrusive thoughts. Narrative Note: []
--- NOTE | 2022-03-08 09:05 | BH.SGPN.GN ---
Behaviors/Verbalizations/Mental Status: [] Eye contact is good. Motor activity is appropriate. Appearance is casual. Speech is Appropriate. Mood is depressed. Affect is flat. Thoughts are linear and logical. No evidence of psychosis. Reviewed daily check in sheet and no reports of suicidal ideations. Client Response/Progress/Benefit: [] Pt participated when prompted. Attentive. Mental health wins were that he put up his Xmas lights over the weekend. Daily symptom tracker notes 2/5 for depression and anxiety. Shared that both himself and his kids were sick all weekend which increased his anxiety, intrusive thoughts, and irritability. Elaborated more on his anxiety and its effects this past weekend. He abruptly cut himself off and with humor called on a peer to check-in next. Therapist did not push him to further discuss his anxiety as he clearly felt the urge to deflect. Benefited from group support and encouragement. Will continue in IOP to prevent decompensation, increase healthy coping skills, and decrease intrusive thoughts. Narrative Note: []
--- NOTE | 2022-03-08 11:00 | BH.SGPN.GN ---
Behaviors/Verbalizations/Mental Status: []Pt alert and oriented, casually dressed and groomed. Eye contact good. Motor activity appropriate. Speech within normal limits. Affect constricted, mood dysthymic and anxious. Thoughts linear, logical, no signs of hallucinations or delusions. Client Response/Progress/Benefit: []Pt receptive of session, engaged throughout AEB pt actively listening and contributing to discussion, as well as taking notes.? Pt participated in the experiential activity and did well to communicate ideas with peers and manage emotions. Pt and group processed how the emotions and perspective of the group impacted the activity. Group worked together to identify different coping skills to help manage pitfalls. Pt identified pitfalls they struggle with such as unhealthy habits, shutting down, and using humor to mask his emotions. Pt plans to work on these pitfalls by using opposite action to open up more to supports. Benefited from identifying personal pitfalls and strategies to overcome these pitfalls. Will continue IOP tx to reduce negative self-talk, increase distress tolerance skills, and improve mood stability. ? Narrative Note: []
--- NOTE | 2022-03-08 12:30 | BH.MDN_ITS ---
Multi-Disciplinary Note - Note 45-min Individual Time Started:: 10:00 Date: 03/08/22 Purpose of session/treatment goals addressed:: Reviewed progress and current symptoms. Reviewed skills and progress on treatment plan goals. Set a date for discharge. Eye Contact:: Good Motor Activity:: Appropriate Appearance:: Casual Speech:: Appropriate Mood:: Anxious Affect:: Congruent Thoughts:: Linear, Logical, No evidence of hallucinations/delusions noted Staff Interventions:: psychoeducation on: - intrusive thoughts., CBT techniques - reviewed cognitive distortions., discharge planning Client Response:: Pt reports a challenging weekend mainly due to not feeling well. Reports that he and his children were sick. Due to his health anxiety feeling unwell is a significant trigger for his anxiety. He was able to identify wins as I took the COVID test to make sure. In the past he reports he would have not taken the test for fear of it being positive which would have led to catastrophizing thoughts. His health anxiety and fear continues to impact him stating that I wanted to go to urgent care but I don't think I could have handled any bad news. States I just pushed through it. He did read the chapters on intrusive thoughts over the weekend and reports that he identified with psychoeducation. This helped normalize some of his weird intrusive thoughts. We discussed what he read and reviewed payne mind, false comfort, and worried mind skills. He continues to rely heavily on distraction when anxious however is currently incorporating acceptance, sitting with the uncomfortable, and affirmation as well. We discussed discharge plan and set date for discharge from [facility] on 03/18/22 Risks/Concerns:: no risks or concerns noted. Progress Toward Goals/Plan:: Progress noted. Consistent and engaged with [facility]. Currently can identify several triggers to anxiety and panic as well as strategies to manage anxiety and intrusive thoughts. Increase awareness of cognitive distortions of catastrophizing and absolute thinking which exacerbate anxiety and depression. Struggles to reframe thoughts independently however is improving. He has been working full-time for the past 5 weeks. Overall improved functioning. Pt brought up his trauma for the first time and therapist encouraged him to address this in outpatient counseling at discharge. Appointment set with outpatient therapist Akiko Mendoza at [place] [id number] on 03/29/22. Will continue in [facility] to maintain gains and prevent decompensation. Discharge planned for 03/18/22. Time Stopped:: 10:45
--- NOTE | 2022-03-09 11:10 | BH.SGPN.GN ---
Behaviors/Verbalizations/Mental Status: []Client alert and oriented, casually dressed and groomed. Eye contact good. Motor activity appropriate. Speech within normal limits. Affect congruent, mood euthymic. Thoughts linear, logical, no signs of hallucinations or delusions. Client Response/Progress/Benefit: []Client responded well to session AEB client listening attentively to others and providing input during group discussion on the pay offs and costs of the different communication styles. Client recognizes when uses aggressive communication with his family it leads to increased guilt and talking negatively to himself. Client initially struggled to be appropriately involved in activity, focused on making jokes. During second part of activity client did better with staying focused and using assertive communication. Able to connect importance of each person being assertive in order to be successful. Attentive during psychoeducation on assertive communication and I statements. Client seemed to benefit from increasing awareness of healthy strategies to improve communication. Client will continue IOP tx to increase confidence, challenge negative thoughts, and prevent decompensation. Narrative Note: []
--- NOTE | 2022-03-09 12:25 | PCM.BH.PN ---
Progress Note Progress Note: History of Present Illness/Interim History: [] The patient is a 37-year-old male with a history of depression, anxiety and health anxiety who is seen in follow-up at the [facility] behavioral health IOP program. I last saw the patient about 1 month ago and he did not wish to make any medication changes. The patient states that his mood is getting better each week. He says he is experiencing less dissociation but still on occasion does dissociate. According to the staff he is consistent in his attendance and engaged in the program and has made progress. The patient has been working on intrusive thoughts and he if he continues to improve may even discharge next week. He is working full-time while coming to the program and he is functioning well at work. He states that the only panic attacks he gets now are very very mild and he is able to work through them. He is still worried about having a brain tumor. The patient laughs when responding to questions about his symptoms possibly in order to minimize his issues but definitely as a coping mechanism. He denies passive thoughts of , worthlessness, hopelessness, suicidal ideation, plan for suicide, homicidal ideation, hallucinations or delusions. Current Psychiatric Medications: [] Prozac 40 mg p.o. daily (on this for 7 years); propranolol 20 mg p.o. daily. The patient was given a prescription for Effexor XR 37.5 mg and we are going to start weaning the Prozac and changing him over to Effexor but he did not wish to do this. Mental Status Examination: [] Patient is a 37-year-old male who is overweight and appears otherwise normal for stated age and is ambulatory with a normal gait. He is casually dressed and groomed with good hygiene and is cooperative during the interview with frequent chuckling and humor. He has no psychomotor agitation or retardation. Eye contact is good and speech is normal rate and rhythm and fluent with no pressure. Mood is euthymic according to the patient. Affect is full and normal. Thought process is goal-directed and organized. Thought content: There is no evidence of passive thoughts of , suicidal ideation, plan for suicide, homicidal ideation, hallucinations or delusions. Reality testing is intact. Impulsivity is moderate. Insight is limited. Judgment is intact. Diagnoses: [] 1. Major depressive disorder, recurrent, severe without psychosis 2. Generalized anxiety disorder 3. Illness anxiety disorder (F45.21) 4. Primary support, health issues Plan: [] The patient will continue the IOP program but may discharge next week if he continues to improve. The structure, education, support and group therapy will hopefully hopefully continue to benefit him and avoid worsening of his symptoms. He felt safe during the interview and if it anytime he does not feel safe he will let us know or go to the emergency room. The risks, options, possible complications and side effects of the medications were again discussed with the patient and he understands and accepts these. He states that maybe in the future he will change from his Prozac to Effexor and will discuss this with his outpatient provider when he decides he is ready to do this. He wishes to stay only on his current medications for now and refills were given on the Prozac 40 mg p.o. daily and the propranolol 20 mg p.o. daily. He will continue to follow-up with his outpatient providers and I will see the patient while he is in the IOP program but he may be discharged soon.
== END 2022-03-09 23:59 ==
LOC: BHIOP 08:10
PROVIDERS: Visit Provider Psychiatry & Neurology Psychiatry
DX: F33.2 Major depressive disorder, recurrent severe without psychotic features (principal); F41.1 Generalized anxiety disorder
CPT/HCPCS: S9480; 90832; 90834; 90853

== ENCOUNTER 2022-03-10 08:19 | Outpatient (RCR) | payer OTHER, SELFPAY ==
[2022-03-10 00:36] VITALS: BP 136/88; PULSE 53
--- NOTE | 2022-03-11 09:00 | BH.SGPN.GN ---
Behaviors/Verbalizations/Mental Status: []Pt alert and oriented, neatly dressed and groomed. Eye contact good. Motor activity appropriate. Speech within normal limits. Affect congruent, mood euthymic. Thoughts linear, logical, no signs of hallucinations or delusions. Reviewed pt?s symptom tracker, no risk for suicidal ideation, plan, or intent as of 03/11/22 Client Response/Progress/Benefit: []pt responded well to session, attentive and engaged. Pt reports feeling excited and nervous as pt has made progress, but he is also worried about leaving IOP next week. The group normalized this feeling and encouraged pt to reflect on all the coping skills he has learned. Pt shared he has been coping better with intrusive thinking and experiencing more moments of maria g. Pt shared he continues to worry in the back of his mind about what if I go back to where I was. Pt appeared to benefit from group support and though challenging. Pt will continue IOP tx to further improve mood stability and increase functioning. Narrative Note: []
--- NOTE | 2022-03-11 10:15 | BH.SGPN.GN ---
Behaviors/Verbalizations/Mental Status: [] Eye contact is good. Motor activity is appropriate. Appearance is casual. Speech is Appropriate. Mood is euthymic. Affect is congruent. Thoughts are linear and logical. No evidence of psychosis. Client Response/Progress/Benefit: [] Pt was an active participant in group discussions and activities. Attentive during psychoeducation. Pt participated during interactive discussion in which the group defined self-care and discussed its benefits. Worked with peers to identify myths related to self-care which included; Self-care is expensive and lavish, self-care is just personal hygiene, self-care means I'm not being productive, self-care should be fun, self-care is too time consuming. Pt participated in small groups where they worked to bust these self-care myths. Pt did well to relate experiential activity to the topic of self-care and its benefit to mental health. Benefited from increased awareness of self-care, its benefits, and the consequences of not utilizing self-care strategies. Will continue in IOP to prevent decompensation, maintain gains, and decrease intrusive thoughts. Narrative Note: []
--- NOTE | 2022-03-11 11:15 | BH.SGPN.GN ---
Behaviors/Verbalizations/Mental Status: []Pt alert and oriented, casually dressed and groomed. Eye contact good. Motor activity appropriate. Speech within normal limits. Affect congruent, mood anxious and euthymic. Thoughts linear, logical, no signs of hallucinations or delusions. Client Response/Progress/Benefit: []Pt engaged participant AEB completing self-assessment worksheet, and providing input throughout discussion. Participated throughout group discussion on the various areas of self-care. Pt completed part of his worksheet, however had to leave early. Worksheet identified current self-care practices and what self-care activities pt wants to start using. Pt selected emotional self-care to begin practicing more consistently. Pt plans to do this by beginning to be more open with his supports about his feelings. Appeared to benefit from completing the self-care evaluation and gaining insights into current self-care practices, as well as identifying areas in which he would like to improve upon. Will continue IOP tx to prevent decompensation, increase use of anxiety management skills, and improve ability to maintain mood stability. Narrative Note: []
--- NOTE | 2022-03-14 09:01 | BH.SGPN.GN ---
Behaviors/Verbalizations/Mental Status: []Pt eye contact good, casually dressed, motor activity appropriate, speech normal rate and tone, mood depressed and anxious, constricted affect, thoughts linear and intact, no evidence of delusions or hallucinations. Per daily symptom tracker denies current SI, plan or intention. Client Response/Progress/Benefit: Pt responded well to session AEB listening attentively to others and sharing thoughts and feelings. Pt identified mental health positive as putting rest of his [place] decorations up. Pt stated did not experience any anxiety while being active. Pt stated additional mental health positive as taking time to play with his kids. Pt reported current stressor is upcoming discharge from IOP this week. Pt reported he is having spike in anxiety which he thinks is connected with the ending of the program. Pt to continue IOP to maintain gains and prevent decompensation. Narrative Note: []
--- NOTE | 2022-03-14 10:03 | BH.SGPN.GN ---
Behaviors/Verbalizations/Mental Status: [] Eye contact is good. Motor activity is appropriate. Appearance is casual. Speech is Appropriate. Mood is euthymic. Affect is congruent. Thoughts are linear and logical. No evidence of psychosis. Client Response/Progress/Benefit: [] Client was an active participant during interactive group discussions. Attentive during psychoeducation on the six types of boundaries (physical, emotional, intellectual, sexual, time, and material) AEB note-taking. Along with peers contributed to interactive discussion on defining what a boundary is in mental health. Client along with peers identified challenges to setting boundaries which included; fear of other's response, guilt, fear of losing relationships, and lack of confidence. Client along with peers identified the benefits to setting boundaries such as increased control, benefit to mental health, and increased confidence. Client shared that he feels that he struggles with physical boundaries and respecting other's set boundaries of it. Client benefited from increased awareness and insight on the importance/benefit to setting health boundaries. Will continue in IOP to prevent decompensation, stabilize anxiety, and improve functioning. Narrative Note: []
--- NOTE | 2022-03-14 11:10 | BH.SGPN.GN ---
Behaviors/Verbalizations/Mental Status: [] Client alert and oriented, casually dressed and appropriately groomed. Eye contact good. Motor activity normal. Speech within normal limits. Affect congruent, mood euthymic. Thoughts linear and intact. no signs of delusions or hallucinations. Client Response/Progress/Benefit: [] Client responded well to session AEB listening attentively to peers, providing input, as well as taking notes throughout. Group discussed the different boundary setting styles which included ridgid, porous, and flexible. Participated well in small group discussion identifying the pros and cons of each boundary setting style. As a group discussed various strategies to set boundaries. Client discussed the pros of flexible style which included not compromising values and feel secure in self. Seemed to benefit from increased awareness of how different boundary styles can impact mental health. Client's will continue IOP tx to increase ability to regulate emotions, increase self-care and improve overall functioning with expected discharge date this week. Narrative Note: []
--- NOTE | 2022-03-18 09:00 | BH.SGPN.GN ---
Behaviors/Verbalizations/Mental Status: []Pt alert and oriented, casually dressed and groomed. Eye contact good. Motor activity appropriate. Speech within normal limits. Affect constricted, mood sad. Thoughts linear, logical, no signs of hallucinations or delusions. Reviewed pt?s symptom tracker, no risk for suicidal ideation, plan, or intent as of 03/18/22 Client Response/Progress/Benefit: [] Pt was more quiet than usual, but he still participated. Pt's last day of IOP tx and pt shared it is bittersweet. Pt is anxious about leaving the program per his report, but he also sees progress. Pt acknowledged his growth in recognizing and managing his intrusive thoughts, reducing anxiety, and being more open about his emotions. Pt is also looking forward to the future rather than dreading it. Pt appeared to benefit from reflecting on his progress and connecting with peers. Pt will discharge from IOP tx today as pt has met his treatment goals and no longer meets criteria for IOP level of care. Narrative Note: []
--- NOTE | 2022-03-18 10:05 | BH.SGPN.GN ---
Behaviors/Verbalizations/Mental Status: []Eye contact is good. Motor activity is appropriate. Appearance is casual and grooming tended to. Speech is Appropriate. Mood is anxious, dysthymic. Affect is congruent. Thoughts are linear and logical. No evidence of psychosis. Client Response/Progress/Benefit: []Client receptive of session, actively engaged throughout AEB taking notes and providing input and examples to discussion. Appeared to connect with group topic of cognitive distortions and the impact of thought patterns on mental health, coping behaviors, and relationships. Reflected that he personally tends to struggle with distortions of all or nothing thinking, emotional reasoning, and catastrophizing. Shared an example of past catastrophizing thinking related to health anxiety. Client appeared to benefit from gaining insight on distorted thinking patterns and how this impacts overall mental health. Progress noted in client report of improved insight into own distorted thinking patterns. Will d/c from IOP tx and continue outpatient services to maintain mood stability and continue to promote healthy coping. Narrative Note: []
--- NOTE | 2022-03-18 13:44 | BH.MDN_ITS ---
Multi-Disciplinary Note - Note 45-min Individual Time Started:: 11:10 Date: 03/18/22 Purpose of session/treatment goals addressed:: Pt scheduled to discharge today. Reviewed skills learned in IOP and aftercare plan. Eye Contact:: Good Motor Activity:: Appropriate Appearance:: Casual Speech:: Appropriate Mood:: Anxious Affect:: Congruent Thoughts:: Linear, Logical, No evidence of hallucinations/delusions noted Staff Interventions:: discharge planning Client Response:: Pt able to see progress while in the IOP program. We reviewed his treatment plan goals and DSM 5 scores. Able to to see progress however is very nervous that he will decompensate without the support, psychoeducation, and accountability of [facility]. Able to see that he is functioning much better since early January when he was admitted to psychiatrist unit, was unable to work or drive due to anxiety, and had suicidal ideations. 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 He reports daily anxiety which can get intense however increased confidence in his ability to manage his emotions. Increased ability to identify and reframe cognitive distortions (catastrophizing, absolute thinking, and should/must) however still struggles to complete this independently. Motivated to continue to work on these skills as well as intrusive thoughts with outpatient therapist. I really got a lot out of the education in intrusive thoughts and I don't feel as abnormal as I used too. Decreased stigma. Risks/Concerns:: no risks or concerns noted. Progress Toward Goals/Plan:: Plan to discharge from [facility] today. Met treatment plan goals. Would benefit from consistent outpatient counseling to remind patient of skills, to practice skill-building, and to begin to work on trauma. When overwhelmed he continues to rely mainly on distraction to help with anxiety however has learned to incorporate internal coping skills such as acceptance, reframing, and resiliency. He has purchased the book Overcoming Intrusive thoughts and plans to read and work through it with his outpatient therapist and . Optimistic about his future. Reports increased connection with his children. His DSM-5 scores did increase since the 3 week review however overall they show an 8% reduction from admission scores. Due to his health anxiety and being sick for the past 2 weeks I suspect that this has increased his anxiety and fear impacting his scores. Time Stopped:: 11:50
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
== END 2022-03-18 12:27 | disposition home or self-care (01) ==
LOC: BHIOP 08:19
PROVIDERS: Visit Provider Psychiatry & Neurology Psychiatry
DX: F33.2 Major depressive disorder, recurrent severe without psychotic features (principal); F41.1 Generalized anxiety disorder; F45.21 Hypochondriasis
CPT/HCPCS: S9480; 90834; 90853